=== PATIENT | male | born 1980 | race Caucasian/White ===

== ENCOUNTER 2020-04-19 16:13 | Inpatient (IN) | payer BC, SELFPAY ==
[2020-04-19 16:14] VITALS: BP 141/77; PULSE 70; RESP 16; TEMP 36.7; O2SAT 99
--- NOTE | 2020-04-19 16:15 | DI.CT_ITS ---
EXAM: CT ABDOMEN PELVIS W CLINICAL HISTORY: DECREASED OUTPUT OF COLOSTOMY. TECHNIQUE: Imaging Protocol: Axial computed tomography images with coronal and sagittal reformatted images were created and reviewed CONTRAST MATERIAL: Intravenous: Omnipaque 350 Contrast volume:structured data in ml Oral: yes / no COMPARISON: No exams were available for comparison FINDINGS: ABDOMEN: Lung Bases: Normal where visualized. Liver: Normal density. No measurable mass. Gallbladder and biliary tract: No radiodense calculus or dilation. Pancreas: Normal density, no abnormal calcifications or inflammatory process. Spleen: Normal. Kidneys: Normal size, contour and axis. No radiodense stones or obstructive uropathy. No masses seen. Adrenal glands: No masses seen. Abdominal Aorta: Abdominal portion non-dilated. PELVIS: Bladder: Symmetric distention, no gross wall thickening. Bowel: There is a right-sided ostomy. A loop of bowel extends into the ostomy and appears obstructed . There are dilated loops of bowel proximal to this level. There is no pneumatosis or bowel wall th ickening. Peritoneal cavity: No ascites, collection or mesenteric inflammatory response. Bones: Within normal limits. Reproductive organs: Within normal limits. Lymph nodes: Unremarkable. Impression: Right-sided ostomy containing a loop of bowel causing obstruction. RADIATION DOSE DELIVERED: Total DLP DATA REPOSITORY: All CT scans at this facility are submitted to the National Radiology Data Registry (NRDR) Dose Index Registry (DIR) with the [employer] ([employer]). RADIATION OPTIMIZATION: All CT scans at this facility use at least one of these dose optimization te chniques: automated exposure control; mA and/or kV adjustment per patient size (includes targeted exa ms where dose is matched to clinical indication); or iterative reconstruction.
--- NOTE | 2020-04-19 16:20 | W.ED.GENAD ---
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 Patient appears uncomfortable but is afebrile and appears nontoxic. His ileostomy bag is noted to have liquid brown stool but no blood. His abdomen is mildly tense and diffusely tender but without rigidity or guarding. 1800 --labs and imaging reviewed. Normal white blood cell count. Potassium 3.2, will replete. Lipase within normal limits. CT notes findings consistent with bowel obstruction near ostomy site. Discussed with [facility] who will contact [facility] surgery for evaluation and recommendations. Patient reassessed -pain controlled with 3 doses of 2 mg morphine here. Nausea resolved. 1954 --discussed with [facility] surgery who reviewed images. Recommend medical management at this time with nasal decompression and to attempt to reduce hernia. If obstruction not resolving, can consider 50 mL's of Omnipaque with serial x-rays every 6 hours within 24-hour. If symptoms do not improve, may need operative intervention. 1999 -- Case discussed with Dr. Ahumada who reviewed CT images and accepts patient for observation overnight. Patient and informed of plan. Patient agreeable with plan for NG tube. Medical Records Medical records reviewed: Yes I reviewed the patient's medical records. Imaging Data Radiologic Study: Radiologist's impression: CT Abdomen And Pelvis With Contrast Exam date and time: 04/19/2020 5:13 PM Age: 39 years old Clinical indication: Other: Decreased output of colostomy, R/O obstruction; Prior surgery; Surgery date: 6+ months TECHNIQUE: Imaging protocol: Computed tomography of the abdomen and pelvis with intravenous contrast. Radiation optimization: All CT scans at this facility use at least one of these dose optimization techniques: automated exposure control; mA and/or kV adjustment per patient size (includes targeted exams where dose is matched to clinical indication); or iterative reconstruction. Contrast material: OMNIPAQUE 350; Contrast volume: 100 ml; Contrast route: INTRAVENOUS (IV); Other contrast: Catheter, 18 g, 2.5; COMPARISON: No relevant prior studies available. FINDINGS: Liver: Normal. No mass. Gallbladder and bile ducts: Normal. No calcified stones. No ductal dilation. Pancreas: Normal. No ductal dilation. Spleen: Normal. No splenomegaly. Adrenals: Normal. No mass. Kidneys and ureters: Normal. No hydronephrosis. Stomach and bowel: Right lower quadrant ostomy contains mildly dilated loop of bowel. Bowel loops leading into the ostomy are dilated and contain air-fluid levels consistent with obstruction. Appendix: No evidence of appendicitis. Intraperitoneal space: Unremarkable. No free air. No significant fluid collection. Vasculature: Unremarkable. No abdominal aortic aneurysm. Lymph nodes: Small retroperitoneal nodes Bladder: Unremarkable as visualized. Reproductive: Unremarkable as visualized. Bones/joints: Unremarkable. No acute fracture. Soft tissues: Unremarkable. IMPRESSION: Right lower quadrant ostomy contains mildly dilated loop of bowel. Bowel loops leading into the ostomy are dilated and contain air-fluid levels consistent with obstruction. Lab Data Lab results reviewed: Yes I reviewed the patient's lab results. Labs: Laboratory Tests Range/Units 04/19/20 04/19/20 16:30 16:30 WBC (4.4-10.8) k/cumm 10.35 RBC (4.50-6.00) m/cumm 4.73 Hgb (13.5-17.5) g/dL 13.9 Hct (40.0-50.0) % 41.6 MCV (80-95) fL 87.9 MCH (27.0-33.0) pg 29.4 MCHC (32.0-36.0) g/dL 33.4 RDW (11.8-14.1) % 12.2 Plt Count (130-400) x1000/uL 219 MPV (8.0-11.0) fL 10.4 Immature Gran % % 0.2 Neutrophils % 80.3 Lymphocytes % 13.1 Monocytes % 5.6 Eosinophils % 0.7 Basophils % 0.1 Absolute Neutrophils (1.2-6.7) k/cumm 8.31 H Absolute Lymphocytes (1.2-3.4) k/cumm 1.36 Absolute Monocytes (0.11-0.7) k/cumm 0.58 Absolute Eosinophils (0.0-0.7) k/cumm 0.07 Absolute Basophils (0.0-0.2) k/cumm 0.01 Sodium (136-145) mmol/L 139 Potassium (3.5-5.1) mmol/L 3.2 L Chloride (98-107) mmol/L 102 Carbon Dioxide (21.0-32.0) mmol/L 26.2 Anion Gap (3-11) mmol/L 10.8 BUN (7-18) mg/dL 14 Creatinine (0.70-1.30) mg/dL 0.92 Estimated GFR/1.73 m2 (mL/min/1.73m2) >= 60.00 Glucose (74-106) mg/dL 121 H Calcium (8.5-10.1) mg/dL 9.0 Total Bilirubin (0.2-1.0) mg/dL 0.7 AST (15-37) U/L 24 ALT (16-63) U/L 24 Alkaline Phosphatase (46-116) U/L 59 Total Protein (6.4-8.2) g/dL 7.7 Albumin (3.4-5.0) g/dL 4.3 Lipase (73-393) U/L 102 HPI General Mode of arrival: ambulatory. Date/Time Provider Initiated Documentation: 04/19/20 16:20. Limitations to Documentation: no limitations. Information obtained by: patient. HPI Narrative: Patient is a 39-year-old male with a history of sigmoid volvulus treated with ex lap and sigmoid resection with ileostomy presents with nausea, dry heaving, abdominal pain and decreased ostomy output today. Patient has a history of lifelong constipation and bowel obstructions prior to his diagnosis of volvulus and sigmoid resection and states his pain feels similar to what he has had with previous bowel obstructions prior to his ileostomy. He states the output from his ostomy has been more liquidy than usual. Denies any blood mixed with stool. He denies any fever or vomiting. He states the abdominal pain is constant, cramping and currently 9/10. He denies any known fever, recent travel, recent alcohol or drug use or urinary symptoms. Related Data Home Medications Medication Instructions Recorded Confirmed Unknown [No Known Home Meds] 04/19/20 04/19/20 Allergies Allergy/AdvReac Type Severity Reaction Status Date / Time No Known Allergies Allergy Unverified 04/19/20 16:19 General Stated Complaint: Abd Prob LISY: 3 Review of Systems All systems reviewed & are unremarkable except as noted in HPI and below Constitutional Constitutional: Reports as per HPI, Denies chills and Denies fever(s) Eyes Eyes: Denies blurry vision ENT Ears, Nose, Mouth, and Throat: Denies dizziness, Denies sore throat and Denies throat swelling Cardiovascular Cardiovascular: Denies chest pain and Denies dyspnea Respiratory Respiratory: Denies cough and Denies dyspnea Gastrointestinal Gastrointestinal: Reports abdominal pain, Reports diarrhea, Reports nausea and Denies vomiting Genitourinary Genitourinary: Denies hematuria and Denies dysuria Musculoskeletal Musculoskeletal: Denies back pain and Denies numbness Integumentary/Breasts Skin/Breast: Denies lesions and Denies rash Neurologic Neurologic: Denies dizziness, Denies localized weakness and Denies numbness Allergic/Immunologic Allergic/Immunologic: Denies throat swelling [facility] Medical History (Updated 04/19/20 @ 19:43 by Bhumi Hill DO) Sigmoid volvulus (Acute) Surgical History (Updated 04/19/20 @ 19:37 by Bhumi Hill DO) H/O ileostomy (Chronic) H/O partial resection of colon (Acute) sigmoid Social History Smoking/Tobacco Use Status: Never Alcohol Intake: never Substance use type: does not use Do you feel safe at home: Yes Do you feel safe in your relationship?: Yes Exam Const General: cooperative and uncomfortable Orientation: alert, awake and oriented x3 HENMT Head: normal to inspection Face and sinus: normal facial exam Eyes General: appearance normal, both eyes and all related structures EOM: EOM intact bilaterally Neck Neck: normal visual inspection and No submandibular swelling Lymphatic: no lymphadenopathy noted Chest Chest: normal inspection of the chest and no tenderness Resp Effort & Inspection: normal respiratory effort and able to speak in complete sentences Auscultation: clear to auscultation bilaterally Cardio Rate: regular rate Rhythm: regular rhythm GI Inspection: normal to inspection and other (Ileostomy noted right lower quadrant w/ liquid brown stool present in bag) Palpation: soft, not firm, not rigid and tender (diffuse) Auscultation: hypoactive bowel sounds Skin General skin exam: no rashes or lesions noted Neuro General: patient alert, patient awake and patient oriented x3 Cognition: normal cognition Speech: speech normal Motor: muscle tone normal throughout Sensory Exam: no sensory deficits noted Extrem General: normal to inspection, full ROM, capillary refill normal, no calf tenderness bilaterally and no edema Psych Appearance: grossly normal Mental Status: mental status grossly normal Speech and Movement: speech and movement normal Affect: normal affect Course Vital Signs Vital signs: Vital Signs Temperature 98.1 F 04/19/20 16:14 Pulse 70 04/19/20 16:14 Respiratory Rate 16 04/19/20 16:14 Blood Pressure 141/77 H 04/19/20 16:14 Pulse Oximetry 99 04/19/20 16:14 Temperature 98.1 F 04/19/20 16:14 Temperature Source Skin 04/19/20 16:14 Pulse 70 04/19/20 16:14 Respiratory Rate 16 04/19/20 16:14 Respiratory Effort Non-Labored 04/19/20 16:18 Blood Pressure 141/77 H 04/19/20 16:14 Blood Pressure Position Supine 04/19/20 16:14 Pulse Oximetry 99 04/19/20 16:14 Oxygen Delivery Method Nasal Cannula 04/19/20 16:14 Pain Level 7 04/19/20 16:14
[2020-04-19] MEDS: Normal Saline 500 ML IV (16:36)
[2020-04-19] MEDS: Ondansetron 4 MG/2 ML VIAL IVP (16:46)
[2020-04-19 16:51] LABS: Abs Immature Grans 0.02 k/cumm (0.0-0.09); Absolute Basophil Count 0.01 k/cumm (0.0-0.2); Absolute Eosinophil Count 0.07 k/cumm (0.0-0.7); Absolute Lymphocyte Count 1.36 k/cumm (1.2-3.4); Absolute Monocyte Count 0.58 k/cumm (0.11-0.7); Absolute Neutrophil Count 8.31 k/cumm (1.2-6.7); Basophils % 0.1; Eosinophils % 0.7; HCT 41.6 % (40.0-50.0); HGB 13.9 g/dL (13.5-17.5); Immature Grans % 0.2 %; Lymphocytes % 13.1; Mean Corp. HGB Concentration 33.4 g/dL (32.0-36.0); Mean Corpuscular Hemoglobin 29.4 pg (27.0-33.0); Mean Corpuscular Volume 87.9 fL (80-95); Mean Platelet Volume 10.4 fL (8.0-11.0); Monocytes % 5.6; Neutrophils % 80.3; Platelet Count 219 x1000/uL (130-400); RBC 4.73 m/cumm (4.50-6.00); RBC Distribution Width 12.2 % (11.8-14.1); White Blood Cell Count 10.35 k/cumm (4.4-10.8)
[2020-04-19 16:57] LABS: ALT 24 U/L (16-63); AST 24 U/L (15-37); Albumin 4.3 g/dL (3.4-5.0); Alkaline Phosphatase 59 U/L (46-116); Anion Gap 10.8 mmol/L (3-11); BUN 14 mg/dL (7-18); Bilirubin, Total 0.7 mg/dL (0.2-1.0); CO2 26.2 mmol/L (21.0-32.0); CREATININE 0.92 mg/dL (0.70-1.30); Chloride 102 mmol/L (98-107); Glucose 121 mg/dL (74-106); Lipase 102 U/L (73-393); Potassium 3.2 mmol/L (3.5-5.1); Sodium 139 mmol/L (136-145); Total Protein 7.7 g/dL (6.4-8.2)
[2020-04-19 17:26] VITALS: BP 121/70; PULSE 70; RESP 18; O2SAT 100
[2020-04-19] MEDS: Potassium Chloride 20 MEQ TABCR 40 MEQ PO (17:36)
[2020-04-19] MEDS: Omnipaque 350 MG/ML 100 ML BTL IV (17:42)
[2020-04-19] MEDS: Normal Saline 20 ML VIAL IV ×2 (17:44→17:45)
[2020-04-19] MEDS: Normal Saline 20 ML VIAL 10 ML IV (17:47)
--- NOTE | 2020-04-19 17:57 | DI.VRAD_ITS ---
Addendum created by Nawaf Odom MD on 04/19/2020 6:12:19 PM EDT THIS REPORT CONTAINS FINDINGS THAT MAY BE CRITICAL TO PATIENT CARE. The findings were verbally communicated via telephone conference with sundar diaz at 6:12 PM EDT on 04/19/2020. The findings were acknowledged and understood. Initial report created on 04/19/2020 5:57:44 PM EDT PROCEDURE INFORMATION: Exam: CT Abdomen And Pelvis With Contrast Exam date and time: 04/19/2020 5:13 PM Age: 39 years old Clinical indication: Other: Decreased output of colostomy, R/O obstruction; Prior surgery; Surgery date: 6+ months TECHNIQUE: Imaging protocol: Computed tomography of the abdomen and pelvis with intravenous contrast. Radiation optimization: All CT scans at this facility use at least one of these dose optimization techniques: automated exposure control; mA and/or kV adjustment per patient size (includes targeted exams where dose is matched to clinical indication); or iterative reconstruction. Contrast material: OMNIPAQUE 350; Contrast volume: 100 ml; Contrast route: INTRAVENOUS (IV); Other contrast: Catheter, 18 g, 2.5; COMPARISON: No relevant prior studies available. FINDINGS: Liver: Normal. No mass. Gallbladder and bile ducts: Normal. No calcified stones. No ductal dilation. Pancreas: Normal. No ductal dilation. Spleen: Normal. No splenomegaly. Adrenals: Normal. No mass. Kidneys and ureters: Normal. No hydronephrosis. Stomach and bowel: Right lower quadrant ostomy contains mildly dilated loop of bowel. Bowel loops leading into the ostomy are dilated and contain air-fluid levels consistent with obstruction. Appendix: No evidence of appendicitis. Intraperitoneal space: Unremarkable. No free air. No significant fluid collection. Vasculature: Unremarkable. No abdominal aortic aneurysm. Lymph nodes: Small retroperitoneal nodes Bladder: Unremarkable as visualized. Reproductive: Unremarkable as visualized. Bones/joints: Unremarkable. No acute fracture. Soft tissues: Unremarkable. IMPRESSION: Right lower quadrant ostomy contains mildly dilated loop of bowel. Bowel loops leading into the ostomy are dilated and contain air-fluid levels consistent with obstruction. Dictated and Authenticated by: Nawaf Odom MD. Ordering:RUIZ Tripathi MD
[2020-04-19] MEDS: Normal Saline Flush 10 ML SYR IVP ×3 (18:14→22:31)
[2020-04-19 18:16] VITALS: BP 125/65; PULSE 84; RESP 18; TEMP 37.1; O2SAT 98
[2020-04-19 19:52] VITALS: BP 114/57; PULSE 76; RESP 16; TEMP 37.1; O2SAT 98
[2020-04-19 21:54] VITALS: BP 114/57; PULSE 76; RESP 16; TEMP 37.1; O2SAT 98
[2020-04-19 22:00] VITALS: BP 102/63; PULSE 65; RESP 16; TEMP 36.7; O2SAT 98
[2020-04-19] MEDS: Lactated Ringers 1,000 ML 150 ML IV (22:30)
[2020-04-20 04:10] VITALS: BP 119/64; PULSE 80; RESP 18; TEMP 37; O2SAT 98
[2020-04-20] MEDS: Lactated Ringers 1,000 ML 150 ML IV ×2 (05:27→11:44)
[2020-04-20 07:11] LABS: Abs Immature Grans 0.02 k/cumm (0.0-0.09); Absolute Basophil Count 0.01 k/cumm (0.0-0.2); Absolute Lymphocyte Count 1.06 k/cumm (1.2-3.4); Basophils % 0.1; Eosinophils % 0.9; HGB 13.1 g/dL (13.5-17.5); Immature Grans % 0.2 %; Lymphocytes % 9.3; Mean Corp. HGB Concentration 32.8 g/dL (32.0-36.0); Mean Corpuscular Hemoglobin 29.4 pg (27.0-33.0); Mean Corpuscular Volume 89.9 fL (80-95); Mean Platelet Volume 10.8 fL (8.0-11.0); Monocytes % 6.1; Neutrophils % 83.4; Platelet Count 210 x1000/uL (130-400); RBC 4.45 m/cumm (4.50-6.00); RBC Distribution Width 12.5 % (11.8-14.1); White Blood Cell Count 11.43 k/cumm (4.4-10.8)
[2020-04-20 07:25] LABS: Anion Gap 8.6 mmol/L (3-11); BUN 12 mg/dL (7-18); CO2 27.4 mmol/L (21.0-32.0); CREATININE 0.71 mg/dL (0.70-1.30); Calcium 8.6 mg/dL (8.5-10.1); Chloride 105 mmol/L (98-107); Glucose 93 mg/dL (74-106); Potassium 3.8 mmol/L (3.5-5.1); Sodium 141 mmol/L (136-145)
[2020-04-20 07:27] LABS: Absolute Neutrophil Count 9.53 k/cumm (1.2-6.7)
[2020-04-20 08:00] VITALS: BP 120/71; PULSE 75; RESP 16; TEMP 37.3; O2SAT 98
[2020-04-20] MEDS: Pantoprazole 40 MG VIAL IVP (08:28)
[2020-04-20] MEDS: Normal Saline Flush 10 ML SYR IVP (08:29)
--- NOTE | 2020-04-20 09:43 | W.PM.HP.N ---
Date of service: 04/20/20 Time of Service: 09:43 Assessment and Plan Assessment and plan (1) Peristomal hernia: Status: Acute Assessment and plan: peristomal hernia that is reducible and non-tender today (2) Small bowel obstruction: Status: Acute Assessment and plan: A\\ HAs had minimal output from his NG tube since this morning at 7. Pain has resolved There is air and stool in his ostomy bag P\\ Clamp NG for 4 hours. If <200 cc then will remove and start on clear liquids History of Present Illness History of Present Illness Chief Complaint: N/V, Abdominal pain Consults Consult date: 04/19/20 Requesting physician: Bret Gamble Narrative: Mr. 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 Workup in the ER included labs and CT scan. Radiologic Study: Radiologist's impression: CT Abdomen And Pelvis With Contrast Exam date and time: 04/19/2020 5:13 PM Age: 39 years old Clinical indication: Other: Decreased output of colostomy, R/O obstruction; Prior surgery; Surgery date: 6+ months TECHNIQUE: Imaging protocol: Computed tomography of the abdomen and pelvis with intravenous contrast. Radiation optimization: All CT scans at this facility use at least one of these dose optimization techniques: automated exposure control; mA and/or kV adjustment per patient size (includes targeted exams where dose is matched to clinical indication); or iterative reconstruction. Contrast material: OMNIPAQUE 350; Contrast volume: 100 ml; Contrast route: INTRAVENOUS (IV); Other contrast: Catheter, 18 g, 2.5; COMPARISON: No relevant prior studies available. FINDINGS: Liver: Normal. No mass. Gallbladder and bile ducts: Normal. No calcified stones. No ductal dilation. Pancreas: Normal. No ductal dilation. Spleen: Normal. No splenomegaly. Adrenals: Normal. No mass. Kidneys and ureters: Normal. No hydronephrosis. Stomach and bowel: Right lower quadrant ostomy contains mildly dilated loop of bowel. Bowel loops leading into the ostomy are dilated and contain air-fluid levels consistent with obstruction. Appendix: No evidence of appendicitis. Intraperitoneal space: Unremarkable. No free air. No significant fluid collection. Vasculature: Unremarkable. No abdominal aortic aneurysm. Lymph nodes: Small retroperitoneal nodes Bladder: Unremarkable as visualized. Reproductive: Unremarkable as visualized. Bones/joints: Unremarkable. No acute fracture. Soft tissues: Unremarkable. IMPRESSION: Right lower quadrant ostomy contains mildly dilated loop of bowel. Bowel loops leading into the ostomy are dilated and contain air-fluid levels consistent with obstruction. Patient was discussed with Dr. Ahumada who admitted patient last night. This morning Mr. Glsaer feels better. His ostomy has started putting out stool and air. He has minimal pain. He had an NG tube placed last night which put out 250 cc. he has had only 50 cc since 7 am. Review of Systems Constitutional Constitutional: Denies fever(s), Denies headache(s), Denies weakness and Denies weight loss Eyes Eyes: Denies change in vision ENT Ears, Nose, Mouth, and Throat: Denies change in voice, Denies headache(s) and Denies hoarseness Cardiovascular Cardiovascular: Denies chest pain, Denies chest pain at rest, Denies irregular heart rhythm, Denies palpitations, Denies dyspnea and Denies dyspnea on exertion Respiratory Respiratory: Denies cough, Denies dyspnea and Denies dyspnea on exertion Gastrointestinal Gastrointestinal: Reports as per HPI, Denies dyspepsia and Denies heartburn Genitourinary Genitourinary: Denies hematuria, Denies oliguria and Denies dysuria Musculoskeletal Musculoskeletal: Reports system reviewed and no additional complaints, except as documented Integumentary/Breasts Skin/Breast: Reports system reviewed and no additional complaints, except as documented Neurologic Neurologic: Reports system reviewed and no additional complaints, except as documented, Denies headache(s) and Denies weakness Psychiatric Psychiatric: Reports system reviewed and no additional complaints, except as documented Endocrine Endocrine: Reports system reviewed and no additional complaints, except as documented and Denies palpitations Hematologic/Lymphatic Hematologic/Lymphatic: Reports system reviewed and no additional complaints, except as documented [facility] Medical History (Updated 04/20/20 @ 09:53 by Deja Chatterjee MD) Chronic constipation (Acute) H/O small bowel obstruction (Acute) Sigmoid volvulus (Acute) Surgical History (Updated 04/20/20 @ 09:49 by Deja Chatterjee MD) H/O ileostomy (Chronic) H/O partial resection of colon (Acute) sigmoid S/P laparotomy (Acute) for sigmoid volvulous Social History Smoking/Tobacco Use Status: Never Alcohol Intake: never Substance use type: does not use Do you feel safe at home: Yes Do you feel safe in your relationship?: Yes Meds Home Medications and Allergies Home Medications Medication Instructions Recorded Confirmed Type Unknown [No Known Home Meds] 04/19/20 04/19/20 History Allergies Allergy/AdvReac Type Severity Reaction Status Date / Time No Known Allergies Allergy Unverified 04/19/20 16:19 Exam Const General: cooperative, comfortable and no acute distress Orientation: alert and oriented x3 HENNJ Head: normocephalic and atraumatic Resp Effort & Inspection: normal respiratory effort Auscultation: clear to auscultation bilaterally Cardio Rate: regular rate Rhythm: regular rhythm Heart Sounds: no gallops, no murmurs and no rubs GI Inspection: incision (well healed midline) Palpation: soft, no hepatosplenomegaly, hernia (reducible periosteal hernia) and nontender Other: ileostomy- pink. There is liquid stool and air in his bag Abdomen image: 1. well healed midline scar 2. ileostomy General: deferred Results Labs Result diagrams: 04/20/20 06:38 04/20/20 06:38 Labs: Laboratory Results - last 24 hr 04/19/20 04/19/20 04/20/20 16:30 16:30 06:38 WBC 10.35 RBC 4.73 Hgb 13.9 Hct 41.6 MCV 87.9 MCH 29.4 MCHC 33.4 RDW 12.2 Plt Count 219 MPV 10.4 Immature Gran % 0.2 Neutrophils % 80.3 Lymphocytes % 13.1 Monocytes % 5.6 Eosinophils % 0.7 Basophils % 0.1 Absolute Neutrophils 8.31 H Absolute Lymphocytes 1.36 Absolute Monocytes 0.58 Absolute Eosinophils 0.07 Absolute Basophils 0.01 Sodium 139 141 Potassium 3.2 L 3.8 Chloride 102 105 Carbon Dioxide 26.2 27.4 Anion Gap 10.8 8.6 BUN 14 12 Creatinine 0.92 0.71 Estimated GFR/1.73 m2 >= 60.00 >= 60.00 Glucose 121 H 93 Calcium 9.0 8.6 Total Bilirubin 0.7 AST 24 ALT 24 Alkaline Phosphatase 59 Total Protein 7.7 Albumin 4.3 Lipase 102 04/20/20 06:38 WBC 11.43 H RBC 4.45 L Hgb 13.1 L Hct 40.0 MCV 89.9 MCH 29.4 MCHC 32.8 RDW 12.5 Plt Count 210 MPV 10.8 Immature Gran % 0.2 Neutrophils % 83.4 Lymphocytes % 9.3 Monocytes % 6.1 Eosinophils % 0.9 Basophils % 0.1 Absolute Neutrophils 9.53 H Absolute Lymphocytes 1.06 L Absolute Monocytes 0.70 Absolute Eosinophils 0.10 Absolute Basophils 0.01 Sodium Potassium Chloride Carbon Dioxide Anion Gap BUN Creatinine Estimated GFR/1.73 m2 Glucose Calcium Total Bilirubin AST ALT Alkaline Phosphatase Total Protein Albumin Lipase Last Vital Signs Temp 99.1 F 04/20/20 08:00 Pulse 75 04/20/20 08:00 Resp 16 04/20/20 08:00 BP 120/71 04/20/20 08:00 Pulse Ox 98 04/20/20 08:00 COVID-19 Screening Have you, or has anyone in your household, traveled outside of [place] in the last 14 days?: NO Had IN PERSON contact w/suspected or confirmed C-19 person: No
[2020-04-20 14:28] LABS: COVID-19 RT-PCR UVMMC Result Negative (Negative)
--- NOTE | 2020-04-20 15:06 | INITIAL_ITS ---
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 Chronic constipation, SMO, sigmoid volvulus, ileostomy, partial resection of colon, laparotomy PREVIOUS FUNCTIONAL STATUS/SOCIAL/FAMILY SUPPORTS:: Quoc resides with his , Sabrina in [place], [place]. He has had a colostomy for about a year. He is independent at baseline in the community. CURRENT FUNCTIONAL STATUS:: Quoc is sleeping soundly, Sabrina at his bedside. She reports no needs or concerns at this time. Has patient been provided with info about the portal/API?: No Did the patient sign up for the portal?: No CODE STATUS:: Full Code INSURANCE COVERAGE / FINANCIAL ISSUES:: BC/BS Other CURRENT HOME/COMMUNITY SERVICES/EQUIPMENT:: colostomy PRIMARY CARE PHYSICIAN:: Freddy Hendrickson POTENTIAL DISCHARGE NEEDS:: Further monitoring; possible surgical intervention may result in transfer. PATIENT/FAMILY EDUCATION NEEDS:: Review discharge instructions, discuss Ask Me Three. ANTICIPATED BARRIERS TO DISCHARGE:: None identified. TRANSPORTATION:: Dependent on disposition. PLAN:: Per MD: Recommend medical management at this time with nasal decom pression and to attempt to reduce hernia. If obstruction not resolving, can consider 50 mL's of Omnipaque with serial x-rays every 6 hours within 24-hour. If symptoms do not improve, may need operative intervention.
--- NOTE | 2020-04-20 16:02 | CHAPLAIN ---
Quoc was sitting up in bed when I visited this morning. He introduced me to his Sabrina. They were both very pleasant and easily engaged in a conversation. I explained my role and introduced myself, and offered support.
[2020-04-20 16:36] VITALS: BP 112/69; PULSE 60; RESP 20; TEMP 37; O2SAT 99
[2020-04-20] MEDS: Lactated Ringers 1,000 ML 80 ML IV (18:34)
[2020-04-21 03:42] VITALS: BP 111/65; PULSE 67; RESP 18; TEMP 36.2; O2SAT 98
[2020-04-21] MEDS: Lactated Ringers 1,000 ML 80 ML IV (06:46)
[2020-04-21] MEDS: Pantoprazole 40 MG VIAL IVP (07:18)
[2020-04-21] MEDS: Normal Saline Flush 10 ML SYR IVP (07:18)
[2020-04-21 08:27] VITALS: BP 107/67; RESP 14; TEMP 36.8; O2SAT 99
--- NOTE | 2020-04-21 09:37 | W.PM.PROGNOT ---
Date of Service Date of service: 04/21/20 Time of Service: 09:37 Assessment and Plan Assessment and plan (1) Small bowel obstruction: Status: Acute Assessment and plan: Most likely mechanical. No signs of recurrent ischemia. Pt is going to have remaining colon removed in 2020, and ostomy will be permaent. They can repair the hernia or place mesh to reinforce at that time currently he is asymp and tolerating po's and would like to go home. d/w pt diet/activity adn warning sings. If these occur- return to ED. (2) Peristomal hernia: Status: Acute (3) Ileostomy in place: Status: Acute Subjective Subjective Interval history since last seen: Pt is doing well. no headaches. No CP or SOB. no productive cough. no dysuria. no leg pain or swelling. tolerating liquids. no pain. He is passing stool. He feels good and would like to go home. Exam Resp Effort & Inspection: normal respiratory effort and able to speak in complete sentences Auscultation: clear to auscultation bilaterally Cardio Palpation: normal PMI Rate: regular rate Rhythm: regular rhythm GI Inspection: incision (well healed. ) Palpation: soft Auscultation: normal bowel sounds Other: ostomy pink/healthy. slt protruberant parastomal hernia vs ant wall laxity. Objective Objective Clinical Data: Vital Signs Temperature 36.8 C 04/21/20 08:27 Temperature Source Tympanic 04/21/20 08:27 Pulse 67 04/21/20 03:42 Pulse Rhythm Regular 04/21/20 07:51 Respiratory Rate 14 04/21/20 08:27 Respiratory Effort Non-Labored 04/21/20 07:51 Respiratory Depth Normal 04/21/20 07:51 Respiratory Pattern Normal 04/21/20 07:51 Blood Pressure 107/67 04/21/20 08:27 Blood Pressure Position Supine 04/19/20 16:14 Pulse Oximetry 99 04/21/20 08:27 Oxygen Delivery Method Room Air 04/21/20 08:27 Oxygen Flow Rate 0 04/21/20 08:27 Pain Level 0 04/21/20 08:27 Intake & Output 04/20/20 04/20/20 04/21/20 11:59 23:59 11:59 Intake Total 1942.5 / 4062.5 2120 / 4062.5 976 / 976 Output Total 350 / 650 300 / 650 Balance 1592.5 / 3412.5 1820 / 3412.5 976 / 976 Intake: IV 1942.5 / 3942.5 1999 / 3942.5 976 / 976 Oral 120 / 120 Output: Stool 350 / 650 300 / 650 Other: Urine Color Yellow Urine Appearance Clear Clear Voiding Methods Toilet Laboratory Results WBC 11.43 k/cumm (4.4-10.8) H 04/20/20 06:38 RBC 4.45 m/cumm (4.50-6.00) L 04/20/20 06:38 Hgb 13.1 g/dL (13.5-17.5) L 04/20/20 06:38 Hct 40.0 % (40.0-50.0) 04/20/20 06:38 MCV 89.9 fL (80-95) 04/20/20 06:38 MCH 29.4 pg (27.0-33.0) 04/20/20 06:38 MCHC 32.8 g/dL (32.0-36.0) 04/20/20 06:38 RDW 12.5 % (11.8-14.1) 04/20/20 06:38 Plt Count 210 x1000/uL (130-400) 04/20/20 06:38 MPV 10.8 fL (8.0-11.0) 04/20/20 06:38 Immature Gran % 0.2 % 04/20/20 06:38 Neutrophils % 83.4 04/20/20 06:38 Lymphocytes % 9.3 04/20/20 06:38 Monocytes % 6.1 04/20/20 06:38 Eosinophils % 0.9 04/20/20 06:38 Basophils % 0.1 04/20/20 06:38 Absolute Neutrophils 9.53 k/cumm (1.2-6.7) H 04/20/20 06:38 Absolute Lymphocytes 1.06 k/cumm (1.2-3.4) L 04/20/20 06:38 Absolute Monocytes 0.70 k/cumm (0.11-0.7) 04/20/20 06:38 Absolute Eosinophils 0.10 k/cumm (0.0-0.7) 04/20/20 06:38 Absolute Basophils 0.01 k/cumm (0.0-0.2) 04/20/20 06:38 Sodium 141 mmol/L (136-145) 04/20/20 06:38 Potassium 3.8 mmol/L (3.5-5.1) 04/20/20 06:38 Chloride 105 mmol/L (98-107) 04/20/20 06:38 Carbon Dioxide 27.4 mmol/L (21.0-32.0) 04/20/20 06:38 Anion Gap 8.6 mmol/L (3-11) 04/20/20 06:38 BUN 12 mg/dL (7-18) 04/20/20 06:38 Creatinine 0.71 mg/dL (0.70-1.30) 04/20/20 06:38 Estimated GFR/1.73 m2 >= 60.00 (mL/min/1.73m2) 04/20/20 06:38 Glucose 93 mg/dL (74-106) 04/20/20 06:38 Calcium 8.6 mg/dL (8.5-10.1) 04/20/20 06:38 Total Bilirubin 0.7 mg/dL (0.2-1.0) 04/19/20 16:30 AST 24 U/L (15-37) 04/19/20 16:30 ALT 24 U/L (16-63) 04/19/20 16:30 Alkaline Phosphatase 59 U/L (46-116) 04/19/20 16:30 Total Protein 7.7 g/dL (6.4-8.2) 04/19/20 16:30 Albumin 4.3 g/dL (3.4-5.0) 04/19/20 16:30 Lipase 102 U/L (73-393) 04/19/20 16:30 COVID-19 PCR Negative (Negative) 04/19/20 20:43 Nasopharyn COVID-19 PCR Not Applicable 04/19/20 20:43 Ref Test Perform Site [facility] 04/19/20 20:43
--- NOTE | 2020-04-21 10:37 | PDOC.CMDIS ---
LACE Index Scoring Tool - Questions: Length of Stay (in days): 2 Acuity (Admit via E.D.?): Yes E.D. Visits: 1 - Answers: Total Score: 6 Risk of Readmission: Low Risk Care Management Discharge Reason for Hospitalization: SBO Discharge Plan: Quoc will return home when ready per MD. He will follow up with his PCP and plan of care as prescribed. He will transport via private vehicle with his upon discharge. Patient/Family Education Needs: Review discharge instructions, discuss Ask Me Three.
--- NOTE | 2020-04-21 12:28 | W.PM.DS.N ---
Date of service: 04/21/20 Time of Service: 12:28 DS: Diagnosis Discharge Diagnosis (1) Peristomal hernia: Status: Acute (2) Small bowel obstruction: Status: Acute Discharge Plan Disposition Patient Disposition: HOME Condition: Stable Discharge Details Chief Complaint: Abd Prob Clinical Impression: Bowel obstruction, Ileostomy in place Reason For Visit: SMALL BOWEL OBSTRUCTION Admit Date/Time: 04/19/20 20:41 Admit Provider: Areli Ahumada Attending Provider: Areli Ahumada Primary Care Provider: Freddy Hendrickson ED Provider: [facility] Course Hospital Course: see addendum Home Meds and New Rx's Prescriptions: No Action No Known Home Meds RF: 0 Discharge Instructions Instructions: High Fiber Diet (GEN) Additional Instructions: -No driving if you are taking narcotic pain medications. -Follow-up with Dr. Ahumada in 1-2 weeks -if no output for over 4hrs- take some Milk of Magnesia dose: 1 TBS every 6hrs prn for BM. -if not nausea or vomiting, increase abdominal pain/swelling/ or no BM for 12hrs- return to ED. -soft diet: No beef/pork raw or vegetables x1 -week. Cooked vegetables are fine. soft or low fiber diet for one week and than SLOWLY transition to high fiber diet -Use tylenol or ibuprofen for pain. 600mg ibuprofen w/ food every 6hrs or 650mg tylenol every 4hrs, as needed. -It is ok to shower/bathe -You may find that your appetite is smaller. Eat 3-6 small meals throughout the day. It is important to drink lots of water after surgery, 6-10 glasses a day. -If you were given an incentive spirometry (breathing dry cell tester?), continue to do this 10x/hour while awake. -We do want you up walking, at least 5-6 times per day. This is very important to prevent pneumonia and blood clots. You can climb stairs, take them slowly. -try Not lifting over 25 pounds. -You may find that you are very tired- this is normal. -8-12 glasses of water daily. Caffeinated beverages and alcohol do not count! It is very importnt to avoid dehydration. Gastrointestinal Soft Diet Overview Overview What is a gastrointestinal soft diet? This diet is soft in texture, low in fiber, and easy to digest. The goal is to decrease) in the bowel that may cause and discomfort. This diet is often used after abdominal surgery or as a transitional diet after flares. Meats & Meat Substitutes ? Foods Allowed: Chicken, turkey, fish, tender cuts of beef and pork, ground meats, eggs, creamy nut butters, tofu, skinless hot dogs, sausage patties without whole spices ? Foods to Avoid : Tough, fibrous meats with gristle, meat with casings (hot dogs, sausage, kielbasa), lunch meats with whole spices, shellfish, beans, chunky peanut butter, nuts Fruits and Juices ? Foods Allowed: Fruit juices without pulp, banana, avocado, applesauce, canned peaches and pears, cooked fruit without the skin/seeds ? Foods to Avoid: Juices with pulp, fresh fruit (except banana and avocado), dried fruits, canned fruit cocktail and pineapple, coconut, frozen/thawed berries Vegetables ? Foods Allowed: Well-cooked or canned vegetables, potatoes without skin, tomato sauces, vegetable juice ? Foods to Avoid: Raw vegetables, all corn, all mushrooms, stewed tomatoes, potato skins, stir-mohamud vegetables, sauerkraut, pickles, olives, all dried beans, peas, and legumes Cereals and Grains ? Foods Allowed: Low- fiber dry or cooked cereals (less than 2 grams fiber per serving), white rice, pasta, macaroni, or noodles ? Foods to Avoid: Cereals with nuts, berries, dried fruits, whole grain cereals, bran cereals, granola, brown or wild rice, whole grain pasta Breads and Crackers ? Foods Allowed: White/refined breads and rolls, plain bagel, toast, plain crackers, kelley crackers ? Foods to Avoid: Whole grain breads- including white whole grain; bread/ rolls with raisins, nuts or seeds, multi-grain crackers Dairy ? Foods Allowed: Milk, cheese, yogurt, milkshakes, pudding, ice cream, cottage cheese, sherbet ; lactose free or low lactose versions if lactose intolerant ? Foods to Avoid: Dairy product mixed with fresh fruit (except banana), berries, nuts or seeds Desserts ? Foods Allowed: Plain cake, pudding, custard, ice cream, sherbet, gelatin, fruit whips ? Foods to Avoid: Any dessert that contains nuts, dried fruits, coconut, or fruits with seeds Herbs and Spices ? Foods Allowed: All ground spices or herbs, salt ? Foods to Avoid: Whole spices such as peppercorns, whole cloves, anise seeds, celery seeds, demond, dutch seeds, and fresh herbs Snacks/Other Foods ? Foods Allowed: Sugar, honey, jelly, mayonnaise, mustard, soy sauce, oil, butter, margarine, marshmallows, cookies without dried fruits or nuts, snack chips and pretzels using refined flours ? Foods to Avoid: Carbonated beverages, jams or jellies with seeds, popcorn After several weeks, slowly start to reintroduce the ?Foods to Avoid? back into your diet unless your doctor has told you otherwise. Try a small portion of one of these foods each day. If it does not bother you within 24 hours, it can be added to your diet. Continue to add new foods in this way. Some people may continue to have food sensitivities and may need to continue to avoid certain foods. If you cannot tolerate a food, avoid that food for a few weeks before you try it again. Guidelines when eating 1. Avoid any food that you cannot tolerate or that causes gas, bloating, or stomach pain. 2. Make time for your meals. Do not eat while you are in a hurry. Cut your food into small pieces. Chew each bite to a mashed potato consistency. Do not eat when you cannot concentrate on chewing well. 3. Drink at least 6-8 cups of fluid per day Fluids include: water, coffee, tea, juice, milk, popsicles, soups, gelatin, pudding, ice cream, sherbet, and yogurt. In addition, choose caffeine-free beverages more often, especially if you are having diarrhea. 4. A daily multivitamin may be recommended if diet is limited in amounts or variety of foods. Do not take any herbal supplements without first checking with your doctor. Activity:: no lifting over 25#'s Equipment/Supplies:: No Equipment Needed Diet:: low fiber/soft diet x 1 week DS: Summary Status at Discharge Functional status at discharge: independent ambulation Overall status at discharge: patient is back to baseline Mental Status: mental status grossly normal Speech and Movement: speech and movement normal Mood: congruent mood Affect: normal affect Exam Psych Mental Status: mental status grossly normal Speech and Movement: speech and movement normal Mood: congruent mood Affect: normal affect DS: Data Vitals/I&O Vitals and I&O: Vital Signs Temperature 36.8 C 04/21/20 08:27 Temperature Source Tympanic 04/21/20 08:27 Pulse 67 04/21/20 03:42 Pulse Rhythm Regular 04/21/20 07:51 Respiratory Rate 14 04/21/20 08:27 Respiratory Effort Non-Labored 04/21/20 07:51 Respiratory Depth Normal 04/21/20 07:51 Respiratory Pattern Normal 04/21/20 07:51 Blood Pressure 107/67 04/21/20 08:27 Blood Pressure Position Supine 04/19/20 16:14 Pulse Oximetry 99 04/21/20 08:27 Oxygen Delivery Method Room Air 04/21/20 08:27 Oxygen Flow Rate 0 04/21/20 08:27 Pain Level 0 04/21/20 08:27 Intake & Output 04/20/20 04/21/20 04/21/20 23:59 11:59 23:59 Intake Total 2120 / 4062.5 1216 / 1216 Output Total 300 / 650 Balance 1820 / 3412.5 1216 / 1216 Intake: IV 1999 / 3942.5 976 / 976 Oral 120 / 120 240 / 240 Output: Stool 300 / 650 Other: Urine Color Yellow Urine Appearance Clear Clear Voiding Methods Toilet Data Completed and Pending Labs on day of discharge: Labs from last 24 hours 04/19/20 20:43 COVID-19 PCR Negative Nasopharyn COVID-19 PCR Not Applicable Ref Test Perform Site [facility], [facility] Medical History Chronic constipation (Acute) H/O small bowel obstruction (Acute) Sigmoid volvulus (Acute) Surgical History H/O ileostomy (Chronic) H/O partial resection of colon (Acute) sigmoid S/P laparotomy (Acute) for sigmoid volvulous Social History Smoking/Tobacco Use Status: Never Alcohol Intake: never Substance use type: does not use Do you feel safe at home: Yes Do you feel safe in your relationship?: Yes
== END 2020-04-21 14:00 | disposition home or self-care (01) | DRG 394 ==
LOC: ER 21:07 → MS 21:50
PROVIDERS: Admitting Provider Surgery; Emergency Provider Physician Assistant; PCP Family Medicine; Visit Provider Surgery
DX: K43.3 Parastomal hernia with obstruction, without gangrene (principal); K56.699 Other intestinal obstruction unspecified as to partial versus complete obstruction; K59.09 Other constipation
CPT/HCPCS: 36415; 80048; 80053; 83690; 96361; 96374; 96375; 96376; 99223; 99238; 99285; NC; U0003; 74177; 85025; J2405; J3490